=== PATIENT | male | born 1975 | race Caucasian/White ===

== ENCOUNTER 2021-11-12 02:01 | Inpatient (IN) | payer OTHER, SELFPAY ==
[2021-11-12] VITALS (24 sets, daily range): BP systolic 101–182; BP diastolic 64–97; PULSE 53–88; RESP 14–23; TEMP 36.1–37.3; O2SAT 93–100; BMI 56.7
--- NOTE | 2021-11-12 | SCC_ITS ---
PROCEDURE DONE: Right ureteral stent 7 Gambian by 30 cm with no string 50.9 seconds of fluoroscopic guidance, for a cumulative dose of 45.38 mGy, was provided to Dr. Irene by the radiology department. C-arm images of the abodmen were saved for the patient's permanent record. [facility]
[2021-11-12] MEDS: morphine 4 mg/mL SDV 1 mL 2 MG IVP ×2 (01:55→12:40)
--- NOTE | 2021-11-12 02:05 | PM.HP ---
Providers/Chief Complaint Admitting Physician: Maria Eugenia Ayala MD Chief Complaint: kidney stone History of Present Illness Antonio Enciso is a 46 year old male with PMH HTN, VELVET on CPAP at night p/w 2 days of right sided flank pain, started suddenly, no preceeding trauma. Initially subsided 2 days ago, then returned over the last 24 hrs, this time with radiation down the right flank into the groin. Multiple episodes of vomiting+. Poor appetite, no fever. 10/10 constant pain currently relived with morphine. Presented initially at [facility] - CT abdomen showed right upper ureter stone 7mm with hydronephrosis. Pending images transfer to [facility]. WBC 6.6. cr 1.2 per outside labs. no h/o dysuria. Has had one dose Moderna covid vaccine 07/2021 Review of Systems General: Reports: 10 or more systems reviewed and unremarkable except in HPI and below Const: Denies: fever(s), chills or body aches Eyes: Denies: change in vision, blurry vision or photophobia ENMT: Reports: hoarseness; Denies: throat pain, enlarged tonsils, odynophagia or nasal congestion Card: Denies: chest pain, palpitations, irregular heart rhythm, edema, swelling of feet/ankles, lightheadedness, pre-syncope, dyspnea on exertion or orthopnea Resp: Denies: dyspnea, productive cough, non-productive cough, wheezing, stridor, pain on inspiration, change in phlegm color, hemoptysis or chest congestion GI: Denies: abdominal pain, nausea, vomiting, hematemesis, coffee ground emesis, dysphagia, heartburn, diarrhea, constipation, GI cramping, change in stool character, hematochezia or melena : Denies: flank pain, dysuria, urinary frequency, urinary urgency, urinary hesitancy or hematuria Musc: Denies: neck pain, back pain, extremity pain, joint swelling, joint warmth or deformity Neuro: Denies: headache(s), numbness in extremities, weakness in extremities, sensory changes, difficulty walking, frequent falls, dizziness, vertigo, behavioral changes, Slurred speech present or seizure-like activity Psych: Denies: anxiety, depression, suicidal ideation or homicidal ideation Endo: Denies: polyuria, polydipsia, tired all the time, cold intolerance or hot flashes Timmy/Lymph: Denies: easy bruising or easy bleeding PFSH Acute PFSH: Medical History (Updated 11/12/21 @ 02:10 by Maria Eugenia Ayala MD) Hypertension VELVET (obstructive sleep apnea) Vitals/I&O/Wt Last Vital Signs Temp 98.1 F 11/12/21 00:40 Pulse 69 11/12/21 00:40 Resp 18 11/12/21 01:55 BP 136/88 11/12/21 00:40 Pulse Ox 96 11/12/21 00:40 Weight last 48 hrs Weight 179.169 kg Physical Exam Narrative: EXAM NARRATIVE: General: No acute distress, AO x3, obese with BMI 56 HEENT: PERRLA, pupils bilaterally equal and reactive, pallors not present Chest: Normal vesicular breath sounds, no added sounds, equal good air entry bilaterally CVS: S1-S2 regular, no murmurs, no tachycardia, no gallops, no rubs Abdomen: Soft, nontender, no organomegaly, bowel sounds present Neuro: No focal deficits, no facial deformity, AO x3, power 5/5 in all limbs Extremities: no swelling, edema A&P Assessment and plan (1) Ureteral stone with hydronephrosis: Presenting with flank pain radiating to groin on right side with Ct findings of 7mm proximal ureteral stone at OSH. Pending document and images upload to [employer] No signs of pyelonephritis at this time check CBC, CMP, PT/INR , presurgical COVID screening urology consult- likely plan for OR in am prn morphine/toradol for pain control NPO IVF NS 75cc /hr pen zofran for nausea and vomiting check UA Status: Acute (2) Hypertension: currently well controlled, takes lisinopril 5mg at home. 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
[2021-11-12] MEDS: sodium chloride 0.9% 1,000 ML 75 ML IV (02:28)
[2021-11-12 02:32] LABS: Basophils % 0.3 %; Eosinophils % 0.3 %; Hematocrit 43.7 % (42.0-52.0); Hemoglobin 14.8 g/dL (11.7-16.6); Lymphocytes # 1.4 10^3/uL (0.8-4.8); Lymphocytes % 14.6 %; Mean Corpuscular HGB Conc 33.9 g/dL (30.0-36.0); Mean Corpuscular Hemoglobin 29.3 pg (28.0-34.0); Mean Corpuscular Volume 86.5 fl (80-94); Mean Platelet Volume 9.6 fL (7.4-10.4); Monocytes # 0.5 10^3/uL (0.2-0.9); Monocytes % 5.8 %; Neutrophils % 78.8 %; Nucleated Red Blood Cells % 0 %; Platelet Count 246 10^3/cmm (130-400); Red Blood Count 5.05 10^6/uL (4.1-5.3); Red Cell Distribution Width 12.3 % (12.1-15.1); White Blood Count 9.3 10^3/uL (4.0-10.0)
[2021-11-12 02:50] LABS: INR 1.17 (0.8-1.2)
[2021-11-12] MEDS: ketorolac 30 mg/mL INJ 15 MG IVP ×2 (02:50→08:31)
[2021-11-12 03:04] LABS: Alanine Aminotransferase 20 U/L (0-41); Alkaline Phosphatase 58 IU/L (40-130); Anion Gap 18.5 (5-19); Aspartate Amino Transferase 17 U/L (0-40); Blood Urea Nitrogen 22 mg/dL (6-20); Calcium 8.6 mg/dL (8.5-10.5); Carbon Dioxide 22 mmol/L (22-29); Chloride 103 mmol/L (98-107); Globulin 3.2 g/dL (1.3-4.6); Glomerular Filtration Rate 90.4 mL/min (90-130); Glucose 124 mg/dL (65-115); Osmolality Calculated 293 mOsm/kg (285-295); Potassium 4.5 mmol/L (3.5-5.1); Sodium 139 mmol/L (136-145); Total Bilirubin 0.4 mg/dL (0.15-1.2); Total Protein 7.2 g/dL (6.6-8.7)
[2021-11-12 03:47] LABS: Add Urine Microscopic? YES; Bilirubin Urine Neg (Negative); Blood Urine 3+ (Negative); Glucose Urine UA Norm (Normal); Ketones Urine Negative (Negative); Leukocyte Esterase Urine Negative (Negative); Nitrate Urine Negative (Negative); Protein Urine 1+ (Negative); Specific Gravity, Urine 1.025 (1.005-1.030); Urine Appearance Clear (CLEAR); Urine Color Yellow (Yellow); Urobilinogen Urine Neg (Negative); pH Urine 5 (5-7)
[2021-11-12 03:48] LABS: Add Urine Culture? No; Mucus Urine 2+ /hpf; WBC Urine 0-4 /hpf (0-5)
--- NOTE | 2021-11-12 05:58 | XRR_ITS ---
PROCEDURE INFORMATION: Exam: XR Abdomen Exam date and time: 11/12/2021 5:58 AM Age: 46 years old Clinical indication: Abdominal tenderness; Patient HX: Rlq and RT sided back pain x 2 days; Additional info: Evaluation of ureteral stone TECHNIQUE: Imaging protocol: XR of the abdomen. Views: Frontal supine view of the abdomen. 1 View. Total images: 2 Other contrast: none; COMPARISON: No relevant prior studies available. FINDINGS: Gastrointestinal tract: Bowel gas pattern is nondistended and nonobstructive. Vasculature: Rounded calcific density projecting in the right flank measuring 8 mm may be intraluminal or vascular. Renal calculus is felt less likely. Bones/joints: Spinal degenerative changes are evident. XR/XR KUB [id number] IMPRESSION: 1. Normal bowel gas pattern 2. Rounded calcific density projecting in the right flank measuring 8 mm may be intraluminal or vascular. Renal calculus is felt less likely.
--- NOTE | 2021-11-12 06:04 | PM.CONSULT ---
Providers/Reason For Consult Consulting Physician/Specialty*: Urology/Irene Reason for Consult*: Refractory right renal colic from 7 mm right proximal ureteral stone Attending Physician: Maria Eugenia Ayala MD History of Present Illness History of Present Illness Antonio is a 46 year old male first evaluated by me today at the request of [facility] ED where patient was direct admitted from for refractory right renal colic secondary to an obstructing 7 mm right ureteral calculus. He had made 2 trips to the ED. Could not control his pain on an outpatient basis. Described pain as 10 out of 10. Poorly controlled nausea and vomiting. No evidence of infection. Work-up: CT scan: WBC: 6.6 Creatinine: 1.2 KUB this morning: Stone readily visible. Other medical issues: Hypertension Obstructive sleep apnea Morbid obesity Reviewed with him the findings. Recommended cystoscopy, RIGHT retrograde ureteroscopy laser stent based on size and likely reduced success rate with ESWL. Reviewed the procedure in detail. Benefits risk potential complications and alternatives (ESWL versus continued observation) thoroughly discussed. We also reviewed that it may require 2 procedures to clear the stone with the first being stenting (due to lack of safe access to the proximal ureter via ureteroscopy) with passive dilation followed by repeat ureteroscopy after ureter more amenable to scope passage. Hopefully can easily access the stone and treat conventionally with laser. He expressed good understanding. He asked appropriate questions. He seemed content with my answers. Informed consent was obtained. I do anticipate that he should be able to be discharged post procedure. Review of Systems Const: Denies: fever(s) or chills Eyes: Denies: change in vision or blurry vision ENMT: Reports: hoarseness; Denies: swelling of lips/tongue Card: Denies: chest pain or palpitations Resp: Denies: dyspnea or wheezing GI: Reports: abdominal pain and vomiting : Reports: flank pain; Denies: dysuria or hematuria Musc: Reports: back pain; Denies: joint redness Skin/Breast: Denies: rash or jaundice Neuro: Denies: confusion, Slurred speech present or seizure-like activity Psych: Reports: anxiety (Pain related but not at baseline) Endo: Denies: flushing Timmy/Lymph: Denies: easy bruising or easy bleeding All/Imm: Denies: urticaria or acute wheezing Meds/Allergies Home Medications and Allergies Home Medications Medication Instructions Recorded Confirmed Last Taken Type hydrocodone-acetaminophen 1 tab PO Q6H PRN 11/12/21 11/12/21 Unknown History lisinopril 5 mg PO DAILY 11/12/21 11/12/21 Unknown History ondansetron 4 mg PO TID PRN 11/12/21 11/12/21 Unknown History tamsulosin 0.4 mg PO DAILY 11/12/21 11/12/21 Unknown History Allergies Allergy/AdvReac Type Severity Reaction Status Date / Time No Known Allergies Allergy Verified 11/12/21 07:38 Current Medications Current Medications Generic Name Dose Route Start Last Admin Trade Name Freq PRN Reason Stop Dose Admin Sodium Chloride 1,000 mls @ 75 mls/hr 11/12/21 02:00 11/12/21 02:28 Sodium Chloride 0.9% IV 75 mls/hr .[id number] GLENYS Administration PFSH Acute PFSH: Medical History Hypertension Morbid obesity VELVET (obstructive sleep apnea) Vitals/I&O/Wt Last Vital Signs Temp 98.1 F 11/12/21 04:00 Pulse 66 11/12/21 04:00 Resp 18 11/12/21 04:00 BP 158/77 11/12/21 04:00 Pulse Ox 94 11/12/21 04:00 Weight last 48 hrs Weight 395 lb Physical Exam Const: COMMON NORMALS: no acute distress, alert and well nourished GENERAL APPEARANCE: well kempt and well developed NUTRITIONAL APPEARANCE: obese morbidly obese ORIENTATION/CONSCIOUSNESS: not confused HENMT: COMMON NORMALS: normocephalic and atraumatic HEAD & SCALP: normocephalic and atraumatic Neck/C-Spine: COMMON NORMALS: full ROM Resp: COMMON NORMALS: normal respiratory effort EFFORT & INSPECTION: No labored and No Actively coughing GI: COMMON NORMALS: Soft to palpation PALPATION: Yes Soft to palpation and Yes Tenderness to palpation present (GI) Details: RLQ and RUQ : OTHER: Right CVA tenderness. Normal genitalia normal urethra Extremity: COMMON NORMALS: no clubbing, cyanosis or edema Neuro: COMMON NORMALS: no focal motor deficits SENSORIUM/ORIENTATION: Yes alert Psych: COMMON NORMALS: mental status grossly normal APPEARANCE: Yes grossly normal and Yes well kempt ATTITUDE: Yes calm and Yes engaged Skin: COMMON NORMALS: no rashes or lesions noted and no jaundice GENERAL SKIN EXAM: no rashes or lesions noted A&P Assessment and plan (1) Ureteral stone with hydronephrosis: 7 cmm, right proximal location with uncontrolled pain Status: Acute (2) Renal colic on right side: Refractory. Failed outpatient oral narcotic regimen Status: Acute (3) Morbid obesity: Makes him a poor candidate for ESWL. Status: Acute (4) Hypertension: Status: Acute Qualifiers: Hypertension type: primary hypertension Qualified Code(s): I10 - Essential (primary) hypertension (5) VELVET (obstructive sleep apnea): Status: Acute Consult Attestations Medical Necessity Statement: Refractory secondary to large proximal stone. Failed outpatient management. 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
[2021-11-12] MEDS: pantoprazole DR 40 mg Tablet PO (07:51)
[2021-11-12] MEDS: sodium chloride 0.9% 1,000 ML 30 ML IV (13:28)
--- NOTE | 2021-11-12 13:35 | P.ANESASSM_ITS ---
Pre-Anesthetic Assessment Pre-Anesthetic Assessment: Height/Weight: Height 1.78 m Weight 179.169 kg Temp Pulse Resp BP Pulse Ox 99.2 F 70 18 156/96 98 11/12/21 13:29 11/12/21 13:29 11/12/21 13:29 11/12/21 13:29 11/12/21 13:29 Preop Diagnosis: renal calculi Proposed Procedure: Operation Date: 11/12/21 13:55 Proposed Procedures p Cystoscopy(Not Applicable) - Moose Irene MD s Retrograde Pyelogram(Right) - Moose Irene MD s Ureteroscopy(Right) - Moose Irene MD s Ureteral Stent Placement(Right) - Moose Irene MD s Laser Lithotripsy(Right) - Moose Irene MD Was Beta Jose taken within 24 hours: N/A Was Clonidine taken within 24 hours: N/A Last intake: yesterday Social: Social History: No alcohol and No tobacco Exam: Pre-Anes Outpt Exam: alert and oriented x 3 Airway: Submandibular: WNL Cervical ROM: WNL MP: 2 Dentition: Chipped (top front right tooth) History/ROS: No significant history except as noted Pulmonary: Pulmonary: Sleep apnea (sleep with CPAP) CV/HEM: CV/HEM: HTN : : None reported Hepatic: Hepatic: None reported GI: GI: GERD (occasional) Metabolic: Metabolic: Morbid obesity Musc/skel: Musc/skel: None reported Neuropsych: Neuropsych: None reported Anesthetic Plan: ASA status: 3 (BMI>40) Anesthesia: Anesthesia Evaluation and General Risk of > 500 ml blood loss (7ml/kg in children): No Meds/Allergies Current Medications: Current Medications Generic Name Dose Route Start Last Admin Trade Name Freq PRN Reason Stop Dose Admin Sodium Chloride 1,000 mls @ 125 m ls/hr 11/12/21 02:00 11/12/21 12:59 Sodium Chloride 0.9% IV 125 mls/hr .Q8H GLENYS Infusion Sodium Chloride 1,000 mls @ 30 ml s/hr 11/12/21 13:30 11/12/21 13:28 Sodium Chloride 0.9% IV 11/13/21 13:29 30 mls/hr .Q24H GLENYS Administration Ketorolac Trometha mine 15 mg 11/12/21 07:48 11/12/21 08:31 Ketorolac 30 Mg/ Ml Inj IVP 11/17/21 07:47 15 mg Q6H PRN Administration MODERATE PAIN Morphine Sulfate 2 mg 11/12/21 02:00 11/12/21 12:40 Morphine 4 Mg/Ml Sdv 1 Ml IVP 2 mg Q4H PRN Administration SEVERE PAIN Pantoprazole Sodiu m 40 mg 11/12/21 09:00 11/12/21 07:[address] 40 Mg Tablet PO 40 mg DAILY GLENYS Administration PFSH Anesthesia PFSH: Medical History Hypertension Morbid obesity VELVET (obstructive sleep apnea) Data Anesthesia CBC & Chem 7: 11/12/21 02:14 11/12/21 02:14 Other Labs: Laboratory Results - last 48 hr 11/12/21 11/12/21 11/12/21 02:14 02:14 02:14 WBC 9.3 RBC 5.05 Hgb 14.8 Hct 43.7 MCV 86.5 MCH 29.3 MCHC 33.9 RDW 12.3 Plt Count 246 MPV 9.6 Neut % (Auto) 78.8 Lymph % (Auto) 14.6 [place] % (Auto) 5.8 Eos % (Auto) 0.3 Baso % (Auto) 0.3 Neut # (Auto) 7.30 Lymph # (Auto) 1.4 [place] # (Auto) 0.5 Eos # (Auto) 0.0 Baso # (Auto) 0.0 Nucleated RBC % (auto) 0 Nucleated RBCs # 0.0 PT INR Sodium 139 Potassium 4.5 Chloride 103 Carbon Dioxide 22 Anion Gap 18.5 BUN 22 H Creatinine 0.9 GFR Calculation 90.4 Glucose 124 H Calculated Osmolality 293 Calcium 8.6 Total Bilirubin 0.4 AST 17 ALT 20 Alkaline Phosphatase 58 Total Protein 7.2 Albumin 4.0 Globulin 3.2 Urine Color Urine Appearance Urine pH Ur Specific [place] Urine Protein Urine Glucose (UA) Urine Ketones Urine Blood Urine Nitrate Urine Bilirubin Urine Urobilinogen Ur Leukocyte Esterase Urine RBC Urine WBC Ur Squamous Epith Cells Amorphous Sediment Urine Bacteria Urine Mucus Blood Type O Positive Rho(D) Type Positive 11/12/21 11/12/21 02:14 03:00 WBC RBC Hgb Hct MCV MCH MCHC RDW Plt Count MPV Neut % (Auto) Lymph % (Auto) [place] % (Auto) Eos % (Auto) Baso % (Auto) Neut # (Auto) Lymph # (Auto) [place] # (Auto) Eos # (Auto) Baso # (Auto) Nucleated RBC % (auto) Nucleated RBCs # PT 15.20 H INR 1.17 Sodium Potassium Chloride Carbon Dioxide Anion Gap BUN Creatinine GFR Calculation Glucose Calculated Osmolality Calcium Total Bilirubin AST ALT Alkaline Phosphatase Total Protein Albumin Globulin Urine Color Yellow Urine Appearance Clear Urine pH 5 Ur Specific [place] 1.025 Urine Protein 1+ H Urine Glucose (UA) Norm Urine Ketones Negative Urine Blood 3+ H Urine Nitrate Negative Urine Bilirubin Neg Urine Urobilinogen Neg Ur Leukocyte Esterase Negative Urine RBC 5-10 H Urine WBC 0-4 H Ur Squamous Epith Cells None Amorphous Sediment Not Reportable Urine Bacteria None Urine Mucus 2+ Blood Type Rho(D) Type Cardiac Studies: No Data to Display
[2021-11-12] MEDS: HYDROmorphone 1 mg/mL INJ 1 mL 0.5 MG IVP (14:20)
--- NOTE | 2021-11-12 14:46 | P.OP_ITS ---
Operative Report Date of procedure: November 12, 2021 Pre-op Diagnosis: 1. Refractory right renal colic 2. Right proximal ureteral stone, obstructing and large Post-op Diagnosis: 1. Refractory right renal colic 2. Right proximal ureteral stone, obstructing and large Implants: Right ureteral stent 7 Mosotho by 30 cm with no string Pathology: none sent Surgeon: Teto Anesthesia: General Estimated blood loss: Minimal Urine output: Not measured Complications: 1. Very narrowed area in the ureter could not safely negotiate with the ureteroscope and for that reason a stent was left indwelling for further healing and passive dilation to facilitate next attempt of scope passage. Findings: 1. Could not access the stone with the ureteroscope due to a very narrowed area in the distal ureter that required very high pressure dilation with the balloon dilator. 2. A stent was placed to allow healing as well as passive dilation to facilitate additional endoscopic treatment of the stone if still required after investigation of the right lower pole mass. Condition: stable Disposition: PACU Brief History: Antonio is a very pleasant 46-year-old white male who I evaluated for the first time today after direct admission last night from [facility] for refractory right renal colic secondary to an obstructing 7 mm right proximal ureteral stone. First stone. Could not control his pain and had 2 trips to the emergency department leading to the direct admission. Stone visible on KUB this morning. Once the films were available from [facility] via electronic transfer I reviewed them just to confirm the stone but found there to be a mass on the right lower pole suspicious for neoplastic process. Cannot rule out a complex cyst. Did recommend to the patient that we proceed with treatment of the stone due to the debilitating pain. There is no reason to believe that this would impact negatively whatever we find when pursuing more info on the mass with outpatient work-up. Procedure: After urgent evaluation examination and obtaining of informed consent he was taken to the operating suite on 11/12/2021 where general anesthesia was administered without difficulty after appropriate timeout was performed, SCDs confirmed to be functioning, preoperative antibiotics administered, beta-sid protocol confirmed. Prepped and draped in usual sterile fashion in dorsolithotomy position paying careful attention to avoiding pressure points. 21 Mosotho cystoscope with 30 degree lens was introduced into the urethral meatus and advanced into the bladder under videoscopy. The bladder was systematically examined and found to be within normal limits. An 8 Mosotho cone-tip catheter was intubated to the right ureteral orifice for right retrograde ureteropyelogram: Several centimeters above the ureteral orifice there was a slight narrowed area but it did not appear to be dramatic. Otherwise the course and caliber of the ureter were normal up to the level of the stone in the proximal ureter which was identified as a filling defect in the expected position based on prior images. The collecting system proximal to the stone was dilated. A flexible tip guidewire was then advanced up the right ureter bypassing the stone and pushing the stone into the renal pelvis. The distal ureter was then dilated with a 15 Mosotho 4 cm balloon with a distinct persistent area of narrowing approximately 4 cm proximal to the ureteral orifice. The narrowed area was very difficult to dilate and actually required 20 ioana of pressure to finally open it up. A second guidewire was then passed without difficulty and the first was secured to the drapes as a safety wire. An offset semirigid ureteroscope was then advanced over the working wire but could not be advanced easily beyond the area of narrowing and narrowing dilation without excessive pressure. The scope was removed and a flexible ureteroscope was then attempted but with the same result. Given the marked narrowing that had been identified on the process of dilation it was decided to forego any more heroic attempts with the scope and instead place a stent, to facilitate passive dilation and healing in order to make access to the stone in right kidney easier and safer. Also since the obstruction is relieved via the stent, it provides time to more thoroughly work up the right lower pole mass and based on those findings, might change our perspective on dealing with the stone. The cystoscope was then backloaded over the safety wire and a 7 Mosotho by 30 cm double-pigtail stent without string was passed over the guidewire through the cystoscope into appropriate position as confirmed via fluoroscopy and cystoscopy. The bladder was drained and the procedure was completed. He tolerated procedure well without complications and was awakened in the operating room and returned to the recovery room in stable condition. PLANS: 1. Anticipate discharge after recovery on the floor but if his pain is still quite significant can observe overnight and plan for discharge tomorrow 2. We will schedule a follow-up in the office in 1 to [address] scan renal mass protocol. Based on those findings we will make more definitive plans for treatment of the stone or treatment of the mass. 3. I reviewed all of the above with emphasis on safety and findings of the right lower pole mass with the patient's and daughter.
--- NOTE | 2021-11-12 14:58 | P.PN_ITS ---
Subjective Subjective: Interval history: Patient was seen this morning, currently he is feeling minimal pain, no nausea, vomiting, lightheadedness, dizziness Vitals/I&O/Wt Last Vital Signs Temp 99.2 F 11/12/21 13:29 Pulse 70 11/12/21 13:29 Resp 18 11/12/21 14:20 BP 156/96 11/12/21 13:29 Pulse Ox 98 11/12/21 13:29 11/11/21 11/12/21 11/12/21 22:59 06:59 14:59 Intake Total 788.75 / 788.75 Balance 788.75 / 788.75 Weight last 48 hrs Weight 179.169 kg Physical Exam Const: COMMON NORMALS: no acute distress and patient oriented x3 Resp: COMMON NORMALS: normal respiratory effort, No retractions, No use of accessory muscles and clear to auscultation bilaterally AUSCULTATION: clear to auscultation bilaterally Cardio: COMMON NORMALS: regular rate, regular rhythm, S1 normal heart sound present and S2 normal heart sound present RATE: regular rate RHYTHM: regular rhythm HEART SOUNDS: S1 normal heart sound present and S2 normal heart sound present GI: COMMON NORMALS: Normal to inspection, nondistended, normoactive bowel sounds present and Soft to palpation PALPATION: Yes Soft to palpation Extremity: COMMON NORMALS: no pedal edema Neuro: COMMON NORMALS: patient oriented x3 Psych: COMMON NORMALS: mental status grossly normal Data : 11/12/21 02:14 11/12/21 02:14 A&P Assessment and plan (1) Ureteral stone with hydronephrosis: Presenting with flank pain radiating to groin on right side with Ct findings of 7mm proximal ureteral stone at OSH. Pending document and images upload to [employer] No signs of pyelonephritis at this time check CBC, CMP, PT/INR , presurgical COVID screening urology consult- likely plan for OR today, likely discharge thereafter prn morphine/toradol for pain control NPO IVF NS 75cc /hr pen zofran for nausea and vomiting check UA Status: Acute (2) Hypertension: currently well controlled, takes lisinopril 5mg at home. Holding for now pending kidney function check Status: Acute Qualifiers: Hypertension type: primary hypertension Qualified Code(s): I10 - Essential (primary) hypertension Additional A&P Information VELVET on CPAP at night Dvt ppx: SCDs Attestations Medical Necessity Statement*: Patient requires hospitalizations for nephrolithiasis Coding Level of Care Code Acute Whipper for Chg Fwd Diagnoses Ureteral stone with hydronephrosis N13.2 Hypertension I10 Hypertension type: primary hypertension
[2021-11-12] MEDS: levofloxacin-dextrose 5 % 500 MG/100 ML PREMIX 100 MG IV (15:00)
--- NOTE | 2021-11-12 15:05 | PC.CHAP ---
Pastoral Care Encounter/Spiritual Assessment Type of Contact [] Declined preschool adviser visit [] Patient/Family/Request visit [] Outpatient visit [] Follow-up visit [] Physician referral [] Code/Alert [] Routine visit [] Staff referral [] Actively dying [] Patient sleeping [] Family support [] [] Out of room [] Palliative care [] [] Receiving care in room [] Pre-surgical visit [] Trauma [] Long length of stay [] ICU visit [xx] Other: ISOLATION Relational/Emotional Strength [] Patient feels connected with others/family/visitors/staff [] Distress [] Loneliness/isolation [] Abandonment Spirituality of Patient [] Person of Lori [] Attends Catholic of their Lori [] Believes in Prayer [] Reads Bible or Presybeterian materials [] There are Spiritual issues to be addressed Design Lead Interventions [] Prayer [] Active listening [] Non-anxious presence [] Spiritual/emotional support [] Crisis/trauma care [] Spiritual counseling [] Bereavement support [] Provided bereavement packet [] Provided Bible/devotional materials [] Provided toy/stuffed animal, coloring book to patient or family member [] Provided Communion [] Anointing/[place] [] Salvation [] Completed spiritual assessment [] Other: Impact on Illness or Injury [] Angry [] Fearful [] Anxious [] Often cries [] Exhaustion [] Unable to work [] Unable to attend religion [] Unable to walk/stand [] Unable to read [] Unable to drive [] Unable to eat/drink [] Unable to sleep [] Unable to be with family [] Patient intubated [] Other: Summary Time spent with patient
--- NOTE | 2021-11-12 15:16 | SC_ITS ---
WS: [id number] C-[facility] [place] for Urology REASON FOR EXAM: surgical procedure FINDINGS: Outside CT reviewed to obtain background for procedure. Report reviewed. Have concern the right renal mass represents a carcinoma. Series of images in surgery demonstrate cannulation of the right ureter with catheter advanced to the level of the right ureterovesical junction with injection of contrast demonstrating probable b ifid right renal pelvis. Following the contrast injection a right ureteral stent was placed with the proximal pigtail the leve l of the right renal pelvis. MT/C-arm [place] for U[facility] IMPRESSION: Right ureteral stent placed in proper position.
[2021-11-12] MEDS: iohexol 300 mg/mL 50 mL Btl (OR ONLY) XX (15:42)
--- NOTE | 2021-11-12 16:22 | SUR.PHASEI ---
received pATIENT FROM OR STAFF. PATIENT ON o2. AIRWAY PATENT. PATIENT DENIES PAIN OR NAUSEA.NSR ON MONITOR.
--- NOTE | 2021-11-12 16:28 | SUR.PHASEI ---
O2 MASK DC'ED .PATIENT A+O X3. TOLERATING ICE CHIPS.
--- NOTE | 2021-11-12 16:39 | PM.DCS ---
Discharge Providers Date of Admission: 11/12/21 02:01 Date of Discharge: November 12, 2021 Attending Provider at Admission: Maria Eugenia Ayala MD Attending Provider at Discharge: Gildardo Ramires MD Diagnoses at Discharge Discharge Diagnosis (1) Ureteral stone with hydronephrosis: Status: Acute (2) Right renal mass: Status: Acute Permanent problem details: RLP mass identified on CT scan (stone protocol) October 2021 and work-up of right ureteral calculus Full work-up recommended with contrasted CT (3) Renal colic on right side: Status: Acute (4) Ureteral stricture, right: Status: Acute Permanent problem details: Dilated for attempt at endoscopy October 2021. Stent left indwelling for passive dilation after unsuccessful endoscopy because of the narrowing (5) Hypertension: Status: Acute Qualifiers: Hypertension type: primary hypertension Qualified Code(s): I10 - Essential (primary) hypertension (6) Morbid obesity: Status: Acute (7) VELVET (obstructive sleep apnea): Status: Acute Reason for Visit Reason for Visit: kidney stone Hospital Course Hospital Course Admitted as a direct admission from [facility] for refractory pain related to a 7 mm right proximal ureteral stone with obstruction. Aggressively managed for pain control. Discussed options for treatment which would include further conservative management if his pain can be well controlled, ESWL (not recommended due to habitus), endoscopic treatment of the stone. Full discussion of benefits and risks of each was performed and ultimately he chose an attempt at endoscopic treatment of the stone. He was taken to the operating suite on the afternoon of 11/12/2021 where where he was found to have a coincidental distal ureteral stricture that required very high pressure dilation and prevented easy access of the upper tract through that area with ureteroscope. It was decided to leave a ureteral stent in place for healing and dilation passively in order to improve safety of endoscopic treatment of the stone. 1 important point also noted was the CT scan which was eventually transferred electronically to [facility] PACS system demonstrate a right lower pole mass of unclear etiology. There was no intravenous contrast so it was difficult to tell whether this was a cystic or a solid mass. Plans were made to pursue CT scan with contrast for further evaluation of the mass. The stent placement was felt to be a temporizing measure for symptomatic control, passive dilation, and also allows work-up of the renal mass which may change our plans if it does appear to be a solid malignant process requiring extirpative therapy. If the right lower pole mass appeared on final work-up to be benign plans would be to reattempt ureteroscopy after period of passive dilation probably 3 weeks postop Full discussion with the family. He was discharged in stable condition. Plans for follow-up were a CT scan renal mass protocol sometime in the next week or 2 follow-up in my office afterwards. Physical Exam Const: COMMON NORMALS: no acute distress, alert and well nourished GENERAL APPEARANCE: well kempt and well developed ORIENTATION/CONSCIOUSNESS: not confused Resp: COMMON NORMALS: normal respiratory effort EFFORT & INSPECTION: No labored and No Actively coughing Neuro: COMMON NORMALS: no focal motor deficits SENSORIUM/ORIENTATION: Yes alert Psych: COMMON NORMALS: mental status grossly normal APPEARANCE: Yes grossly normal and Yes well kempt ATTITUDE: Yes calm and Yes engaged Skin: COMMON NORMALS: no rashes or lesions noted and no jaundice GENERAL SKIN EXAM: no rashes or lesions noted Discharge Data Data Completed and Pending: Completed Studies During Hospitalization Category Date Time Status XR KUB [id number] Rout ine Exams 11/12/21 05:58 Completed Pending at discharge Category Date Time Status Coronavirus Test [facility] Routi ne Lab 11/12/21 02:00 Ordered Labs from last 24 hours 11/12/21 11/12/21 11/12/21 03:00 02:14 02:14 WBC RBC Hgb Hct MCV MCH MCHC RDW Plt Count MPV Neut % (Auto) Lymph % (Auto) [place] % (Auto) Eos % (Auto) Baso % (Auto) Neut # (Auto) Lymph # (Auto) [place] # (Auto) Eos # (Auto) Baso # (Auto) Nucleated RBC % (a uto) Nucleated RBCs # PT 15.20 H INR 1.17 Sodium Potassium Chloride Carbon Dioxide Anion Gap BUN Creatinine GFR Calculation Glucose Calculated Osmolal ity Calcium Total Bilirubin AST ALT Alkaline Phosphata se Total Protein Albumin Globulin Urine Color Yellow Urine Appearance Clear Urine pH 5 Ur Specific Gravit y 1.025 Urine Protein 1+ H Urine Glucose (UA) Norm Urine Ketones Negative Urine Blood 3+ H Urine Nitrate Negative Urine Bilirubin Neg Urine Urobilinogen Neg Ur Leukocyte Casandra ase Negative Urine RBC 5-10 H Urine WBC 0-4 H Ur Squamous Epith Cells None Amorphous Sediment Not Reportable Urine Bacteria None Urine Mucus 2+ Blood Type O Positive Rho(D) Type Positive 11/12/21 11/12/21 02:14 02:14 WBC 9.3 RBC 5.05 Hgb 14.8 Hct 43.7 MCV 86.5 MCH 29.3 MCHC 33.9 RDW 12.3 Plt Count 246 MPV 9.6 Neut % (Auto) 78.8 Lymph % (Auto) 14.6 [place] % (Auto) 5.8 Eos % (Auto) 0.3 Baso % (Auto) 0.3 Neut # (Auto) 7.30 Lymph # (Auto) 1.4 [place] # (Auto) 0.5 Eos # (Auto) 0.0 Baso # (Auto) 0.0 Nucleated RBC % (a uto) 0 Nucleated RBCs # 0.0 PT INR Sodium 139 Potassium 4.5 Chloride 103 Carbon Dioxide 22 Anion Gap 18.5 BUN 22 H Creatinine 0.9 GFR Calculation 90.4 Glucose 124 H Calculated Osmolal ity 293 Calcium 8.6 Total Bilirubin 0.4 AST 17 ALT 20 Alkaline Phosphata se 58 Total Protein 7.2 Albumin 4.0 Globulin 3.2 Urine Color Urine Appearance Urine pH Ur Specific Gravit y Urine Protein Urine Glucose (UA) Urine Ketones Urine Blood Urine Nitrate Urine Bilirubin Urine Urobilinogen Ur Leukocyte Casandra ase Urine RBC Urine WBC Ur Squamous Epith Cells Amorphous Sediment Urine Bacteria Urine Mucus Blood Type Rho(D) Type Vitals: Last Vital Signs Temp 97.3 F L 11/12/21 16:05 Pulse 70 11/12/21 16:10 Resp 18 11/12/21 16:10 BP 136/94 11/12/21 16:10 Pulse Ox 97 11/12/21 16:10 Discharge Plan Discharge Patient Disposition: Home Condition: Stable Prescriptions: Continued hydrocodone-acetaminophen 5-325 mg tablet 1 tab PO Q6H PRN (Reason: Pain) RF: 0 lisinopril 5 mg tablet 5 mg PO DAILY RF: 0 ondansetron 4 mg tablet,disintegrating 4 mg PO TID PRN (Reason: Nausea) RF: 0 Held tamsulosin 0.4 mg capsule 0.4 mg PO DAILY RF: 0 Hold Instructions: Resume on 12/03/21. Discharge Orders: Discharge Order (Routine); Ordered 11/12/21 Ordered By: Moose Irene Referrals: Moose Irene MD [Physician] - 7-10 days (CT scan, renal mass protocol prior to visit.) Discharge Diet: Advance as tolerated Discharge Activity: Increase activity as tolerated Patient Instructions: Opioid Safety Activity Restrictions/Additional Instructions: 1. You had a very narrowed area in the bottom portion of the kidney tube on the right side that was difficult to dilate. 2. This area despite being dilated was difficult to bypass with the scope. Several attempts were made but it was felt to be more risk than should be taken to try to force the scope through the area and for that reason the attempt at accessing the stone was abandoned and it was decided instead to leave a stent in place for PASSIVE DILATION of the ureter which would facilitate easy access to the stone in the near future. 3. This would also allow in the absence of obstruction and obstruction pain, the opportunity to further work-up the right kidney mass. 4. We will plan on obtaining a CT scan with and without contrast to evaluate the mass. If it appears to be a benign lesion of no concern and with no treatment required we can proceed sometime in the next roughly 3 weeks with repeat endoscopy to access the stone after an adequate period of passive dilation. 5. The stent will create some symptoms. Urgency, frequency, flank pain with voiding, blood in the urine are all common. These tend to improve the longer the stent is indwelling. 6. If you have not heard from my office early next week please call [phone] for an update on the scheduling of the CT scan. clean up person is Mary Alice. 7. Please call the hospital compress machine operator if you need to reach me after hours. Discharge Attestations Time Spent in Discharge Care*: less than 30 min Quality Metrics Clinical Quality Measures During this hospital stay, did patient experience: None Coding Level of Care Code Acute g [facility] note Exam Detailed Diagnoses Ureteral stone with hydronephrosis N13.2 Right renal mass N28.89 Renal colic on right side N23 Ureteral stricture, right N13.5 Hypertension I10 Hypertension type: primary hypertension Morbid obesity E66.01 VELVET (obstructive sleep apnea) G47.33
--- NOTE | 2021-11-12 16:44 | SUR.PHASEI ---
REPORT GIVEN TO SAILAJA LOMBARDI. NO CHANGE IN PATIENT CONDITION. OF PATIENT INFORMED OF PATIENTS CONDITION.
[2021-11-12] MEDS: oxyCODONE-APAP 10-325 mg Tablet 1 TAB PO (17:41)
--- NOTE | 2021-11-13 08:17 | ANE.PACU2 ---
Inpatient post-anesthesia follow up: Airway intact: Yes Vital signs: Temperature 97.6 F Pulse Rate 74 Respiratory Rate 18 Blood Pressure 174/92 Pulse Oximetry 94 Oxygen Delivery Me thod [ Room Air Current Rate & Del wing] Oxygen Delivery Me thod Room Air Oxygen Flow Rate 8 Fraction of Inspir ed Oxygen Hydration adequate: Yes Nausea and vomiting: No Pain level: 2 Mental status: Baseline
== END 2021-11-12 18:04 | disposition home or self-care (01) | DRG 660 ==
PROVIDERS: Urology; Admitting Provider Student in an Organized Health Care Education/Training Program; Visit Provider Family Medicine
PROC: 0TJB8ZZ Inspection of Bladder, Via Natural or Artificial Opening Endoscopic (ICD-10-PCS; CPT 52000; principal; 2021-11-12 13:45)
PROC: 0T768DZ Dilation of Right Ureter with Intraluminal Device, Via Natural or Artificial Opening Endoscopic (ICD-10-PCS; CPT 74420; 2021-11-12 13:45)
PROC: 0TJ98ZZ Inspection of Ureter, Via Natural or Artificial Opening Endoscopic (ICD-10-PCS; CPT 52351; 2021-11-12 13:45)
PROC: 0T768DZ Dilation of Right Ureter with Intraluminal Device, Via Natural or Artificial Opening Endoscopic (ICD-10-PCS; CPT 50605; 2021-11-12 13:45)
DX: N13.2 Hydronephrosis with renal and ureteral calculous obstruction (principal); Z68.43 Body mass index [BMI] 50.0-59.9, adult; N13.1 Hydronephrosis with ureteral stricture, not elsewhere classified; N28.89 Other specified disorders of kidney and ureter; R11.2 Nausea with vomiting, unspecified; I10 Essential (primary) hypertension; E66.01 Morbid (severe) obesity due to excess calories; G47.33 Obstructive sleep apnea (adult) (pediatric)
CPT/HCPCS: 36415; 74018; 76000; 80053; 81001; 85025; 85610; 86900; C2625; J0330; J1100; J1170; J1885; J1956; J2250; J2270; J2405; J2704; J3010; J3490; J7030

== ENCOUNTER 2021-11-29 11:21 | Outpatient (CLI) | payer OTHER, SELFPAY ==
--- NOTE | 2021-11-29 11:30 | CT_ITS ---
WS: [id number] CT ABDOMEN AND PELVIS WITH AND WITHOUT CONTRAST HISTORY: RIGHT RENAL MASS TECHNIQUE: Unenhanced 5 mm axial imaging first performed through the abdomen. Post contrast imaging t hrough the abdomen and pelvis. Oral contrast has been provided. Sagittal and coronal reformats are s ubmitted. All CT scans at [facility] use at least one of these dose optimization techniques: automated exposure control; mA and/or kV adjustment per patient size (includes targeted exams where d ose is matched to clinical indication); or iterative reconstruction. CONTRAST: Omnipaque 300; 95 mL IV. DLP: 5393.13 mGy.cm COMPARISON: 11/11/2021 Lung bases are clear. Heart size is top normal. Small hiatal hernia. Liver is moderately enlarged with diffuse areas of decreased attenuation of hepatic steatosis. No mas s identified. Normal portal vein. Spleen and pancreas are unremarkable. Gallbladder, adrenal glands a nd aorta are negative. RIGHT kidney: No hydronephrosis. Double pigtail RIGHT ureteral stent has been placed since the prior examination. Proximal pigtail is in the renal pelvis. No residual hydronephrosis. Large cyst in the m id to lower RIGHT kidney measures 7.0 x 6.5 cm. No enhancement or solid component. No septation ident ified. No solid mass. LEFT kidney: Normal size with no obstruction. No calcifications. No uroepithelial lesions. No ascites or adenopathy. No GI tract obstruction. It extends is not definitely identified. Urinary b ladder is minimally distended. Distal RIGHT ureteral pigtail catheter coiled within the bladder. Dege nerative disc disease and osteophytes throughout the lower thoracic and lumbar spines. There is a com ponent of stenosis throughout the lumbar spine. CT/CT abdomen pelvis wo/w [id number] IMPRESSION: 1. Double pigtail RIGHT ureteral pigtail catheter in good position. No residua l hydronephrosis. 2. No calcifications identified within either kidney. 3. Simple cyst RIGHT kidney measures 7.0 x 6.5 cm. 4. Hepatic steatosis and hepatomegaly.
[2021-11-29] MEDS: iohexol 300 mg/mL 100 mL Btl IV (11:47)
== END 2021-11-29 11:22 | disposition home or self-care (01) ==
PROVIDERS: PCP Urology; Visit Provider Urology
DX: N28.89 Other specified disorders of kidney and ureter (principal); Z96.0 Presence of urogenital implants; N28.1 Cyst of kidney, acquired; K76.0 Fatty (change of) liver, not elsewhere classified; R16.0 Hepatomegaly, not elsewhere classified
CPT/HCPCS: 74178; 81003

== ENCOUNTER 2021-12-15 05:53 | Day surgery (SDC) | payer OTHER, SELFPAY ==
[2021-12-14 09:52] VITALS: BMI 50.2
[2021-12-15] VITALS (9 sets, daily range): BP systolic 116–151; BP diastolic 71–88; PULSE 59–68; RESP 10–18; TEMP 36.2–36.6; O2SAT 91–100
--- NOTE | 2021-12-15 | SCC_ITS ---
Procedure Done: 1. Cystoscopy, removal of right ureteral stent 2. Right flexible ureterorenoscopy with laser lithotripsy 3. Right ureteral stent placed (6 [place] by 30 cm double-pigtail with string) 37.9 seconds of fluoroscopic guidance, for a cumulative dose of 36.67 mGy, was provided to Dr. Irene by the radiology department. C-arm images of the abdomen were saved for the patient's permanent record. AILYND
--- NOTE | 2021-12-15 05:58 | SC_ITS ---
WS: [id number] Exam: C-arm [place] for Urology Date/Time of Exam: 12/15/2021 5:58 AM Reason For Exam: Right ureteroscopy C-arm images of the right abdomen and pelvis are submitted for evaluation. The images depict a right ureteral catheter in place appearing to extend from the region of the right kidney to the region of the bladder. No other significant finding on this limited series.
--- NOTE | 2021-12-15 05:58 | XR_ITS ---
WS: [id number] Exam: XR KUB [id number] Date/Time of Exam: 12/15/2021 5:59 AM Reason For Exam: Right proximal ureteral stone status post stenting No bowel obstruction or free air. 1.2 cm calcifications seen in the right abdomen may represent a nicanor al stone. A right ureteral catheter is in place. No sign of organ enlargement. Degenerative changes o f the lower lumbar spine. XR/XR KUB [id number] IMPRESSION: 1. 1.2 cm calcification in the right abdomen which may represent a renal stone. 2. Right ureteral catheter in place as noted above.
--- NOTE | 2021-12-15 06:02 | P.HPUD_ITS ---
Surgery/Procedure H&P Update DATE OF PROCEDURE: December 15, 2021 DATE H&P PERFORMED: 11/29/21 H&P UPDATE INFORMATION: I have reviewed H&P completed within last 30 days, I have examined patient prior to procedure, No changes to prior documentation and H&P is in [facility] EMR on date indicated CHANGES TO PREVIOUS DOCUMENTATION: KUB this morning shows that the stone still in the kidney PREOP DIAGNOSIS: Right proximal ureteral stone PLANNED PROCEDURE: Operation Date: 12/15/21 07:00 Proposed Procedures p Cystoscopy 01440, 68448/N13.2(Not Applicable) - Moose Irene MD s Ureteral Stent Exchange 17991, 73206/N13.2(Right) - Moose Irene MD s Ureteroscopy 73705, 07823/N13.2(Right) - Moose Irene MD s Laser Lithotripsy 38740, 26921/N13.2(Right) - Moose Irene MD
--- NOTE | 2021-12-15 06:02 | W.PM.OPSUD ---
Surgery/Procedure H&P Update DATE OF PROCEDURE: December 15, 2021 DATE H&P PERFORMED: 11/29/21 H&P UPDATE INFORMATION: I have reviewed H&P completed within last 30 days, I have examined patient prior to procedure, No changes to prior documentation and H&P is in [facility] EMR on date indicated CHANGES TO PREVIOUS DOCUMENTATION: KUB this morning shows that the stone still in the kidney PREOP DIAGNOSIS: Right proximal ureteral stone PLANNED PROCEDURE: Operation Date: 12/15/21 07:00 Proposed Procedures p Cystoscopy 75383, 36462/N13.2(Not Applicable) - Moose Irene MD s Ureteral Stent Exchange 95918, 25280/N13.2(Right) - Moose Irene MD s Ureteroscopy 45990, 35101/N13.2(Right) - Moose Irene MD s Laser Lithotripsy 88923, 25903/N13.2(Right) - Moose Irene MD
--- NOTE | 2021-12-15 06:49 | PM.OP ---
Operative Report Date of procedure: December 15, 2021 Pre-op Diagnosis: Right renal calculus Right distal ureter stricture Post-op Diagnosis: Right renal calculus Right distal ureter stricture Procedure Done: 1. Cystoscopy, removal of right ureteral stent 2. Right flexible ureterorenoscopy with laser lithotripsy 3. Right ureteral stent placed (6 Mont[place]ian by 30 cm double-pigtail with string) Implants: Right ureteral stent Pathology: none sent Surgeon: Teto Anesthesia: General Estimated blood loss: Minimal Urine output: Not measured Findings: Stent removed without difficulty. Ureteral stricture was well-healed and passively dilated easily enough to pass the scope without difficulty Stone was located in the lower pole calyx and easily accessible. Completely fragmented into sand Condition: stable Disposition: PACU Brief History: Antonoi is a very pleasant 46-year-old white male who about a month ago was admitted to the hospital after 2 emergency department visits for refractory right renal colic related to a 7 mm right proximal ureteral stone. Previous imaging had been done at [facility]. Due to refractory pain we elected to proceed with endoscopic treatment in the absence of lithotripsy availability and also because he is a large individual it was felt that the ESWL would not work as well on the stone. Intraoperatively he was found to have a right distal ureteral stricture that could not be easily bypassed despite balloon dilation. A stent was left indwelling for passive dilation and healing and it has been in place now for a month. He is back today for reattempt at endoscopic treatment of the stone. In addition he was found to have a large right lower pole mass that ultimately was proven to be simple cyst. Procedure: After routine preoperative evaluation examination and obtaining of informed consent he was taken to the operating suite on 12/15/2020 where general anesthesia was administered without difficulty after appropriate timeout was performed, SCDs confirmed to be functioning, preoperative antibiotics administered, beta-sid protocol confirmed. Prepped and draped in usual sterile fashion in dorsolithotomy position paying careful attention to avoiding pressure points. 21 Montserratian cystoscope with 30 degree lens was introduced into the urethra meatus and advanced into the bladder under videoscopy. Bladder was systematically examined. No stone was seen. The stent was in the expected position without significant encrustation. A flexible tip guidewire was advanced up the right ureter next to the stent easily bypassing the area of previously identified stricture and secured to the drapes as a safety wire. The stent was removed with grasping forceps and a second guidewire was passed next to the safety wire easily. This was the working wire. The flexible ureteroscope was advanced over the working wire easily bypassing the area of previous stricture up into the kidney. Stone was encountered in the expected position in a lower pole calyx and a 365 ?m thulium superpulse laser fiber was utilized to fragment the stone into essentially sand. No significant fragments remained. No attempt at removing the sand was made due to the small size and dusting. The ureter was carefully inspected as the scope was removed. There is a little bit of inflammatory change at the previous dilation site and for that reason it was decided to leave a stent indwelling temporarily. Cystoscope was then backloaded over the guidewire and a 6 [place]ian by 30 cm double-pigtail stent with string attached distally was advanced over the guidewire through the cystoscope into appropriate position as confirmed via fluoroscopy and cystoscopy. Stent was confirmed to be draining. Bladder was drained and the procedure was completed. The string was shortened and was left loosely hanging without taping He tolerated the procedure well without complications and was awakened in the operating room and returned to the recovery room in stable condition. PLANS: 1. Anticipate discharge from outpatient surgery 2. Follow-up in roughly 1 week for stent removal with string. Reviewed strength precautions.
--- NOTE | 2021-12-15 06:51 | ANES.PREANE2 ---
Pre-Anesthetic Assessment Pre-Anesthetic Assessment: Height/Weight: Height 1.78 m Weight 158.757 kg Temp Pulse Resp BP Pulse Ox 97.9 F 63 18 151/88 99 12/15/21 06:19 12/15/21 06:19 12/15/21 06:19 12/15/21 06:19 12/15/21 06:19 Preop Diagnosis: Right proximal ureteral stone Proposed Procedure: Operation Date: 12/15/21 07:00 Proposed Procedures p Cystoscopy 12816, 24420/N13.2(Not Applicable) - Moose Irene MD s Ureteral Stent Exchange 97814, 27348/N13.2(Right) - Moose Irene MD s Ureteroscopy 67158, 82895/N13.2(Right) - Moose Irene MD s Laser Lithotripsy 58072, 65799/N13.2(Right) - Moose Irene MD Was Beta Jose taken within 24 hours: N/A Was Clonidine taken within 24 hours: N/A Last intake: Intake Last Liquid Date 12/14/21 Last Liquid Time 20:30 Last Solid Date 12/14/21 Last Solid Time 18:00 Social: Social History: No alcohol and No tobacco Exam: Pre-Anes Outpt Exam: alert, oriented x 3, clear to auscultation bilaterally and regular rate & rhythm Airway: Submandibular: WNL Cervical ROM: WNL MP: 2 Dentition: Chipped Pulmonary: Pulmonary: Sleep apnea CV/HEM: CV/HEM: HTN Metabolic: Metabolic: Morbid obesity Anesthetic Plan: ASA status: 3 Anesthesia: General Risk of > 500 ml blood loss (7ml/kg in children): No PFSH Anesthesia PFSH: Medical History Hypertension Morbid obesity VELVET (obstructive sleep apnea) Right renal mass RLP mass identified on CT scan (stone protocol) October 2021 and work-up of right ureteral calculus Full work-up recommended with contrasted CT Family History Father Healthy adult Mother Healthy adult Social History Smoking and tobacco status: never smoked Alcohol intake: current Alcohol intake frequency: holidays/special occasions only Marital status: Current occupational status: employed History of recent travel: No Data Anesthesia Cardiac Studies: No Data to Display
[2021-12-15] MEDS: levofloxacin-dextrose 5 % 500 MG/100 ML PREMIX 100 MG IV (07:05)
[2021-12-15] MEDS: sodium chloride 0.9% 1,000 ML 30 ML IV (07:09)
--- NOTE | 2021-12-15 14:14 | ANE.PACU2 ---
Inpatient post-anesthesia follow up: Airway intact: Yes Vital signs: Temperature 97.5 F Pulse Rate 59 Respiratory Rate 18 Blood Pressure 131/88 Pulse Oximetry 99 Oxygen Delivery Me thod Room Air Oxygen Flow Rate 6 Fraction of Inspir ed Oxygen Hydration adequate: Yes Nausea and vomiting: No Pain level: 2 Mental status: Baseline
== END 2021-12-15 09:29 | disposition home or self-care (01) ==
PROVIDERS: PCP Family Medicine; Visit Provider Urology
PROC: 0TJB8ZZ Inspection of Bladder, Via Natural or Artificial Opening Endoscopic (ICD-10-PCS; CPT 52000; principal; 2021-12-15 07:00)
PROC: (CPT 52356; 2021-12-15 07:00)
PROC: 0TJ98ZZ Inspection of Ureter, Via Natural or Artificial Opening Endoscopic (ICD-10-PCS; CPT 52351; 2021-12-15 07:00)
PROC: (CPT 52356; 2021-12-15 07:00)
DX: N13.5 Crossing vessel and stricture of ureter without hydronephrosis (principal); N20.0 Calculus of kidney; I10 Essential (primary) hypertension; E66.01 Morbid (severe) obesity due to excess calories; Z68.43 Body mass index [BMI] 50.0-59.9, adult; G47.33 Obstructive sleep apnea (adult) (pediatric)
CPT/HCPCS: 52356; 36410; 74018; 76000; 76942; C2625; J0330; J1100; J1956; J2704; J3010; J3490; J7030

== ENCOUNTER 2022-04-04 13:09 | Outpatient (CLI) | payer OTHER, SELFPAY ==
--- NOTE | 2022-04-04 13:15 | XR_ITS ---
WS: [id number] XR KUB [id number] REASON FOR EXAM: Ureteral stone with hydronephrosis FINDINGS: Compared to the previous examination of 12/15/2021 the right ureteral stent has been removed. Previously demonstrated right renal calculus no longer identifiable. No other urinary tract calculi a re identified. No other interval change or new finding. XR/XR KUB [id number] IMPRESSION: Previously identified right renal calculus no longer identifiable. Right ureter al stent has been removed.
== END 2022-04-04 13:10 | disposition home or self-care (01) ==
LOC: RAD 13:09
PROVIDERS: PCP Family Medicine; Visit Provider Urology
DX: N13.2 Hydronephrosis with renal and ureteral calculous obstruction (principal)
CPT/HCPCS: 74018; 81003